=== PATIENT | female | born 2000 | race Two or more races ===

== ENCOUNTER 2025-01-09 11:34 | Outpatient (REF) | payer MEDICAID, SELFPAY ==
[2025-01-09 13:10] LABS: MANUAL DIFF FLAG NO
--- OUTSIDE RECORDS SUMMARY | 2025-01-09 13:14 | XMS_ITS | Encounter Summary ---
Author Organization [email or web address] Address [address] [facility] 7[address] [place] [address] Care Team Providers Care Production Welder Name Role Phone Malena Hare MD Primary Care Provider + Reason for Visit * Reason Comments Med Change Request Encounter Details Date Type Department Care Team ([facility] st Contact Info) Description 01/09/2025 Refill [facility] [address] [place], [place] [phone] Malena Hare MD [address] [place], [place] [phone] Social History Tobacco Use Types Packs/Day Years Used Date Smoking Tobacco: Never Smokeless Tobacco: Never Alcohol Use Standard Drinks/Week Comments Not Currently 0 (1 standard drink = 0.6 oz pur e alcohol) Housing Stability Answer Date Recorded What is your housing situation today? I have [place] 01/09/[address] you li ve. Do you have problems with any of the following? None of the above 01/09/2025 Food Insecurity Answer Date Recorded Within the past 12 months, y ou worried that your food would run out before you got money to buy more: Never True 01/09/2025 Within the past 12 months,th e food you bought just didn't last and you didn't have enough money to get more: Never True 08/2025 Transportation Answer Date Recorded In the past 12 months, has l ack of transportation kept you from medical appts, meetings, work or from getting things needed for daily living? No 01/09/2025 Utilities Answer Date Recorded In the past 12 months, has t he electric, gas, oil or water company threatened to shut off services in your home? No 01/09/2025 Depression Answer Date Recorded Patient Health Questionnaire-2 Score 0 01/09/2025 Internet Access Answer Date Recorded Internet Access Q1 No 01/09/2025 Internet Access Q2 I do not want or need it 12/31 Comments No Sex and Gender Information Value Date Recorded Sex Assigned at Female 08/24/2023 9:31 AM EDT Legal Sex Female 3:48 PM EDT Gender Identity Female 08/24/2023 9:31 AM EDT Sexual Orientation Straight 08/24/2023 9: 31 AM EDT documented as of this encounter Plan of Treatment Upcoming Encounters Date Type Department Care Team (Late st Contact Info) Description 03/31/2025 9:45 AM EDT Office Visit [facility] [address] [place], [place] [phone] Malena Hare MD [address] [place] [phone] documented as of this encounter Visit Diagnoses Not on filedocumented in this encounter Care Teams Production Welder Relationship Specialty Start Date End Date Malena Hare MD [address] [place] [address] [phone] PCP - General Internal Medicine 01/09/25 documented as of this encounter
--- OUTSIDE RECORDS SUMMARY | 2025-01-09 13:14 | XMS_ITS | Clinical Summary ---
Author Organization [facility] Address [address] [place] [address] Care Team Providers Care Optometrist Name Role Phone Unavailable Primary Care Provider Unavailabl e Social History Tobacco Use Types Packs/Day Years Used Date Smoking Tobacco: Never Assessed Comments Unknown Sex and Gender Information Value Date Recorded Sex Assigned at Not on file Legal Sex Female 2:52 AM EST Gender Identity Not on file Sexual Orientation Not on file Plan of Treatment Health Maintenance Due Date Last Done Comments HPV Vaccines (1 - 3-dose series) 2014 DTaP,Tdap,and Td Vaccines (1 - Tdap) 2018 Hepatitis B Vaccines (1 of 3 - 19+ 3-dose series) 2018 Cervical Cancer Screening: P ap Smear 2020 Depression Screening 10/05/2022 HIV Screening 10/05/2022 Hepatitis C Screening 10/05/2022 Social Influencers of Health Screening 10/05/2022 COVID-19 Vaccine ( - 2023-2 5 season) 2024 Influenza Vaccine (#1) 2024 HIB Vaccines Aged Out No longer eligi ble based on patient's age to complete this topic Hepatitis A Vaccines Aged Out No long er eligible based on patient's age to complete this topic IPV Vaccines Aged Out No longer eligi ble based on patient's age to complete this topic MMR Vaccines Aged Out No longer eligi ble based on patient's age to complete this topic Meningococcal ACWY Vaccine Aged Out N o longer eligible based on patient's age to complete this topic Meningococcal B Vacine Aged Out No lo nger eligible based on patient's age to complete this topic Pneumococcal Vaccine: Pediat rics (0 to 5 Years) and At-Risk Patients (6 to 64 Years) Aged Out No longer eligible b ased on patient's age to complete this topic RSV Immunization Patients Un hans 20 months Aged Out No longer eligible b ased on patient's age to complete this topic Varicella Vaccines Aged Out No longer eligible based on patient's age to complete this topic
--- OUTSIDE RECORDS SUMMARY | 2025-01-09 13:14 | XMS_ITS | Encounter Summary ---
Author Organization [employer] Address [address] [facility] 7t [place] [address] Care Team Providers Care Head Rigger Name Role Phone Malena Hare MD Primary Care Provider + Encounter Details Date Type Department Care Team (Latest Contact Info) Description 01/09/2025 Travel Social History Tobacco Use Types Packs/Day Years [...] Description 03/31/2025 9:45 AM EDT Office Visit [facility] [address] [place] [phone] Malena Hare MD [address] [place] [address] documented as of this encounter Visit Diagnoses Not on filedocumented in this encounter Care Teams Head Rigger Relationship Specialty Start Date End Date Malena Hare MD [address] [place] [id number] PCP - General Internal Medicine 01/09/25 documented as of this encounter
--- OUTSIDE RECORDS SUMMARY | 2025-01-09 13:14 | XMS_ITS | Clinical Summary ---
Author Organization [employer] Address [address] [facility] 7t [place] [address] Care Team Providers Care Stitcher Around Name Role Phone Malena Hare MD Primary Care Provider + Allergies No known active allergies Medications multivitamin () 27-0.8 MG tablet Take 1 tablet by mouth Once per day. 30 tablet 01/09/2025 Active valACYclovir (Valtrex) 1 g tablet Take 1 tablet (1,000 mg) by mouth Once per day. 90 tablet 01/09/2025 Active Active Problems Problem Noted Date Diagnosed Date Recurrent oral ulcers 01/09/2025 Class 3 severe obesity due t o excess calories without serious comorbidity with body mass index (BMI) of 40.0 to 44.9 in adult 01/09/2025 Slow transit constipation 01/09/2025 Decreased vision in both eyes 01/09/2025 Encounters Date Type Department Care Team Description 01/09/2025 10:45 AM EDT Office Visit [facility] [address] [place] [phone] Malena Hare MD Recurrent oral ulcers (Primary Dx); Slow transit constipation; Decreased vision in both eyes; Class 3 severe obesity due to excess calories without serious comorbidity with body mass index (BMI) of 40.0 to 44.9 in adult (CMS/HCC); Dietary counseling; Exercise counseling 01/09/2025 Refill [facility] [address] [place] [address] [phone] Malena Hare MD 01/09/2025 Travel 11/28/2024 4:00 PM EST Office Visit [facility] [address] [place] [phone] Name, MD Landry Herpes labialis (Primary Dx) 11/28/2024 Travel 10/25/2024 Telephone [facility] [address] [place] [address] Malena Hare MD New pt appt from Last 3 Months Immunizations Name Administration Dates Next Due Influenza injectable quadrivalent preservative f ree 08/24/2023 Pfizer Covid-19 Vaccine 12+ 08/24/2023 Social History Tobacco Use Types Packs/Day Years Used Date Smoking Tobacco: Never Smokeless Tobacco: Never Tobacco Cessation:Counseling Given: Not Answered Alcohol Use Standard Drinks/Week Comments Not Currently [...] Orientation Straight 08/24/2023 9: 31 AM EDT Last Filed Vital Signs Vital Sign Reading Time Taken Comments Blood Pressure 118/76 01/09/2025 10:35 AM EDT Pulse 88 01/09/2025 10:35 AM EDT Temperature 36.4 ??C (97.6 ??F) 01/09/2025 10:35 AM E DT Respiratory Rate 16 01/09/2025 10:35 AM EDT Oxygen Saturation 98% 11/28/2024 3:58 PM EST Inhaled Oxygen Concentration - - Weight 105 kg (231 lb 4 oz) 01/09/2025 10:35 AM EDT Height 160 cm (5' 3 ) 01/09/2025 10:35 AM EDT Body Mass Index 40.96 01/09/2025 10:35 AM EDT Plan of Treatment Upcoming Encounters Date Type Department Care Team (Late st Contact Info) Description 03/31/2025 9:45 AM EDT Office Visit [facility] [address] [place], [place] [phone] Malena Hare MD [address] [place], [place] [phone] Health Maintenance Due Date Last Done Comments Dental Oral Exam 1999 Dental Prophylaxis 1999 Dental X-Ray: Bitewings 1999 Dental X-Ray: Full Mouth 1999 HIV Screening 1999 Lipid Panel 1999 Alcohol/Substance Use Screening 2011 Family Planning (PISQ) 2014 HPV Vaccines (1 - 3-dose series) 2014 Hepatitis C Screening 2017 DTaP/Tdap/Td Vaccines (1 - Tdap) 2018 Hepatitis B Vaccines (1 of 3 - 19+ 3-dose series) 2018 Pap Smear 2020 COVID-19 Vaccine (2 - 2023-2 5 season) 2024 08/24/2023 Influenza Vaccine (#1) 2024 08/24/2023 Depression Screening 01/09/2026 01/09/2025, 01/09/2025 SDOH Screening 01/09/2026 01/09/2025 Tobacco Screening 01/09/2026 01/09/2025 Zoster Vaccines (1 of 2) 2049 RSV Patients and Patients Aged 60 years or older (1 - 1-dose 75+ series) 2074 HIB Vaccines Aged Out No longer eligi ble based on patient's age to complete this topic Hepatitis A Vaccines Aged Out No long er eligible based on patient's age to complete this topic IPV Vaccines Aged Out No longer eligi ble based on patient's age to complete this topic Meningococcal Vaccine Aged Out No ramírez ronald eligible based on patient's age to complete this topic Pneumococcal Vaccine: Pediatrics (0 to 5 Years) and At-Risk Patients (6 to 49) Years) Aged Out No longer eligible b ased on patient's age to complete this topic RSV under 20 months Aged Out No longe r eligible based on patient's age to complete this topic Rotavirus Vaccines Aged Out No longer eligible based on patient's age to complete this topic Insurance [facility] C3 DENTAL-[facility] MEDICAID STAND ADULT Care Teams Stitcher Around Relationship Specialty Start Date End Date Malena Hare MD [address] [place] [phone] PCP - General Internal Medicine 01/09/25
--- OUTSIDE RECORDS SUMMARY | 2025-01-09 13:14 | XMS_ITS | Encounter Summary ---
Author Organization [employer] Address [address] [facility] 7 [place] [address] Care Team Providers Care Mine Safety Engineer Name Role Phone Malena Hare MD Primary Care Provider + Reason for Referral * Consultation (Routine) - Authorized Specialty Diagnoses / Procedures Referred By Kyara salgado Referred To Contact Optometry Diagnoses Decreased vision in both eyes Malena Hare MD [address] [place] [address] Phone: tel: fax: [facility] [address] [place] [phone] Phone: tel: fax: Referral ID Status Reason Start Date Expiration Date Visits Requested Visits Authorized [id number] Authorized Consult and Treat 01/09/2025 01/09/2026 1 1 Reason for Visit * Reason Comments New patient appointment Encounter Details Date Type Department Care Team (Late st Contact Info) Description 01/09/2025 10:45 AM EDT Office Visit [facility] [address] [place] [phone] Malena Hare MD [address] [place] [address] Recurrent oral ulcers (Primary Dx); Slow transit constipation; Decreased vision in both eyes; Class 3 severe obesity due to excess calories without serious comorbidity with body mass index (BMI) of 40.0 to 44.9 in adult (CMS/HCC); Dietary counseling; Exercise counseling Social History Tobacco Use Types Packs/Day Years [...] AM EDT documented as of this encounter Last Filed Vital Signs Vital Sign Reading Time Taken Comments Blood Pressure 118/76 01/09/2025 10:35 AM EDT Pulse 88 01/09/2025 10:35 AM EDT Temperature 36.4 ??C (97.6 ??F) 01/09/2025 10:35 AM E DT Respiratory Rate 16 01/09/2025 10:35 AM EDT Oxygen Saturation - - Inhaled Oxygen Concentration - - Weight 105 kg (231 lb 4 oz) 01/09/2025 10:35 AM EDT Height 160 cm (5' 3 ) 01/09/2025 10:35 AM EDT Body Mass Index 40.96 01/09/2025 10:35 AM EDT documented in this encounter Plan of Treatment Upcoming Encounters Date Type Department Care Team (Late st Contact Info) Description 03/31/2025 9:45 AM EDT Office Visit [facility] [address] [place] [address] Malena Hare MD [address] [place], [place] [phone] Scheduled Orders Name Type Priority Associated Diagnoses Orde r Schedule CBC auto differential Lab Routine Class 3 severe obesity due to excess calories without serious comorbidity with body mass index (BMI) of 40.0 to 44.9 in adult ([facility]) Expected: 01/09/2025 (Approximate), Expires: 01/09/2026 Comprehensive Metabolic Panel Lab Routine Slow transit constipation Expected: 01/09/2025 (Approximate), Expires: 01/09/2026 Syphilis Screen Lab Routine Recurrent oral ulcers Expected: 01/09/2025 (Approximate), Expires: 01/09/2026 [email or web address] Lab Routine Recurrent oral ulcers Expected: 01/09/2025 (Approximate), Expires: 01/09/2026 TSH with Reflex to Free T4 Lab Routine Class 3 severe obesity due to excess calories without serious comorbidity with body mass index (BMI) of 40.0 to 44.9 in adult ([facility]) Expected: 01/09/2025 (Approximate), Expires: 01/09/2026 Lipid Panel with Reflex to Direct LDL Lab Routine Class 3 severe obesity due to excess calories without serious comorbidity with body mass index (BMI) of 40.0 to 44.9 in adult ([facility]) Expected: 01/09/2025 (Approximate), Expires: 01/09/2026 Herpes Simplex Virus 1 and 2 (IgG), Type-Specific Antibodies Lab Routine Recurrent oral ulcers Expected: 01/09/2025 (Approximate), Expires: 01/09/2026 Herpes Simplex Virus 1 and 2 (IgG), Type-Specific Antibodies Lab Routine Recurrent oral ulcers Expected: 01/09/2025 (Approximate), Expires: 01/09/2026 HIV-1/2 Antigen and Antibodies, Fourth Generation, with Reflexes Lab Routine Recurrent oral ulcers Expected: 01/09/2025 (Approximate), Expires: 01/09/2026 Hepatitis Panel, General Lab Routine Recurrent oral ulcers Expected: 01/09/2025 (Approximate), Expires: 01/09/2026 Scheduled Referrals Name Type Priority Associated Diagnoses Orde r Schedule Referral to Optometry Outpatient Referral Routine Decreased vision in both eyes Expected: 01/09/2025 (Approximate), Expires: 01/09/2026 documented as of this encounter Visit Diagnoses Diagnosis Recurrent oral ulcers- Primary Slow transit constipation Decreased vision in both eyes Moderate or severe vision impairment, both eyes, impairment level not further specified Class 3 severe obesity due to excess calories without serious comorbidity with body mass index (BMI) of 40.0 to 44.9 in adult (CMS/HCC) Dietary counseling Dietary surveillance and counseling Exercise counseling documented in this encounter Care Teams Mine Safety Engineer Relationship Specialty Start Date End Date Malena Hare MD [address] [place] [id number] PCP - General Internal Medicine 01/09/25 documented as of this encounter
[2025-01-09 13:30] LABS: Basophils Percent Auto 0.1 % (0-2); Eosinophils Absolute Auto 0.1 X10*3/uL (0.0-0.4); Eosinophils Percent Auto 1.1 % (0-4); Hematocrit 40.9 % (37.0-47.0); Hemoglobin 13.4 g/dl (12.0-16.0); Imm Gran Abs Auto 0.02 X10*3/uL (0.00-0.03); Imm Gran Pct Auto 0.3 % (0.0-0.4); Lymphocytes Absolute Auto 2.5 X10*3/uL (1.2-4.9); Lymphocytes Percent Auto 32.9 % (20-40); Mean Corpuscular HGB Conc 32.8 g/dl (31.0-35.0); Mean Corpuscular Hemoglobin 28.2 pg (27.0-33.0); Mean Corpuscular Volume 85.9 fL (80.0-98.0); Mean Platelet Volume 9.9 fL (9.4-12.3); Monocytes Absolute Auto 0.4 X10*3/uL (0.1-1.2); Monocytes Percent Auto 5.2 % (2-11); Neutrophils Absolute Auto 4.6 x10*3/uL (2.0-8.3); Neutrophils Percent Auto 60.4 % (45-73); Platelet Count 322 X10*3/uL (160-400); Red Blood Count 4.76 X10*6/uL (4.20-5.50); Red Cell Distribution Width 13.2 % (11.0-16.0); White Blood Count 7.5 X10*3/uL (4.8-10.8)
[2025-01-09 13:54] LABS: Alanine Aminotransferase 70 U/L (0-31); Albumin Level 4.3 g/dL (3.5-5.0); Alkaline Phosphatase 142 U/L (39-117); Anion Gap 10 (12-20); Aspartate Amino Transferase 37 U/L (5-31); Bilirubin Total 0.2 mg/dL (0.0-1.0); Blood Urea Nitrogen 6 mg/dL (9-16); Calcium 9.4 mg/dL (8.4-10.2); Carbon Dioxide 24 mmol/L (22-29); Chloride 109 mmol/L (96-108); Cholesterol 173 mg/dL (<200); Estimated Glomerular Filt Rate > 60; Glucose Random 97 mg/dL (60-115); HDL Cholesterol 40 mg/dL (>40); LDL Cholesterol Calculated 116 mg/dL (<100); Potassium 4.2 mmol/L (3.3-5.1); Sodium 139 mmol/L (135-145); Total Protein 8.1 g/dL (6.5-8.0); Triglycerides 85 mg/dL (<150)
[2025-01-09 14:12] LABS: TSH reflex Free T4 1.28 uIU/mL (0.32-4.0)
[2025-01-09 15:19] LABS: Reflex LDLD? No
[2025-01-10 08:10] LABS: Syphilis Screen Nonreactive (Nonreactive)
[2025-01-10 08:27] LABS: HBc Num1 0.05 S/CO (0.00-0.79); HBsAGNum1 0.23 S/CO (0.00-0.99); HIV AB/AG Nonreactive (Nonreactive); HIV Num 1 0.06 S/CO (0.00-0.99); Hepatitis A Antibody IgM 0.17 Index (0-0.79); Hepatitis B Core Antibody Nonreactive (Nonreactive); Hepatitis B Surface Antigen Negative (Negative); ~Hepatitis A Antibody IgM Nonreactive (Nonreactive); ~Hepatitis B Surface Antibody NONREACTIVE (Nonreactive); ~Hepatitis C Antibody Nonreactive (Nonreactive)
[2025-01-10 20:52] LABS: Herpes Simplex Type 2 IgG <0.90 index
[2025-01-12 14:08] LABS: TS Negative Control Passed; TS Panel A 0; TS Panel B 0; TS Positive Control Passed; TSpotTB Negative (Negative)
== END 2025-01-09 11:35 | disposition home or self-care (01) ==
LOC: HO.HHCL 11:34
PROVIDERS: Visit Provider Internal Medicine
DX: E66.813 Obesity, class 3 (principal); K13.79 Other lesions of oral mucosa; E66.01 Morbid (severe) obesity due to excess calories; Z68.41 Body mass index [BMI] 40.0-44.9, adult; K59.01 Slow transit constipation
CPT/HCPCS: 36415; 80053; 80061; 84443; 85025; 86481; 86695; 86696; 86704; 86706; 86709; 86780; 86803; 87340; 87389

== ENCOUNTER 2025-06-29 15:35 | Outpatient (REF) | payer MEDICAID, SELFPAY ==
--- OUTSIDE RECORDS SUMMARY | 2025-06-29 16:01 | XMS_ITS | Clinical Summary ---
Author Organization [employer] Address [address] [place] [address] Care Team Providers Care Stock Dealer Name Role Phone Malena Hare MD Primary Care Provider + Allergies No known active allergies Medications multivitamin () 27-0.8 MG tablet TAKE 1 TABLET BY MOUTH EVERY DAY 90 tablet 01/10/2025 Active Active Problems Problem Noted Date Diagnosed Date Pure hypercholesterolemia 03/31/2025 Assessment & Plan (03/31/2025 10:13 AM EDT): We discussed re rx options. Recommended moderate amount of exercise and increase consumption of fruit, vegetables, fish and high fiber foods. Should decrease consumption of highly saturated fats or trans fats. Will refer to dietitian and follow-up lipid profile in 8 to 12 months Primary herpes simplex infection of oral region 03/31/2025 Assessment & Plan (03/31/2025 10:13 AM EDT): Resolved with Valtrex daily, she will continue to complete 3 months and stop Reconsult as needed We discussed about contact transmission, avoid mucosal contact with affected areas. Preventative health care 03/31/2025 Assessment & Plan (03/31/2025 10:18 AM EDT): Patient is not interested in contraception at this time, she is not actively seeking but uretheral my getting . She agreed to start vitamins, will minimize prescription medications, advised to avoid drugs or alcohol or any recreational substance Advise regarding increase exercise and healthy diet. We discussed about Td hepatitis and HPV immunization, she does not want to have any immunization and I gave her information about these vaccines, will follow-up at next visit Elevated liver enzymes 03/31/2025 Assessment & Plan (03/31/2025 10:17 AM EDT): Very mild elevation, probably related to fatty liver We discussed about weight reduction, increase exercise and fiber in the diet We advised regarding hepatitis immunization but she does not want to have any immunizations at this time, she will bring immunization record at next visit. 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 Given that patient has associated increased LFTs, I will refer to GI for further follow-up of liver lesions and ?Fatty liver. Recurrent oral ulcers 01/09/2025 Assessment & Plan (01/09/2025 1:59 PM EDT): Most likely HSV, no improvement with 5 day Valtrex treatment. Will start suppressive therapy 1 gr daily X 2-3 months. I will FU with her next month. Class 3 severe obesity due t o excess calories without serious comorbidity with body mass index (BMI) of 40.0 to 44.9 in adult 01/09/2025 Assessment & Plan (03/31/2025 10:14 AM EDT): Discussed re weight reduction options including exercise, life style modifications, diet. Recommended to decrease soda and sugary beverage consumption, increase protein intake with meals (at least 1 portion of protein with each meal) to assist with satiety, increase dietary fiber Recommended at least 150 min/week of moderate intensity exercise. Refer to dietitian, follow-up with me in 3 to 4 months and may prescribe medications if needed, she agreed with the POC. Assessment & Plan (01/09/2025 2:02 PM EDT): Order labs. Discussed re weight reduction options including exercise, life style modifications, diet. Recommended to decrease soda and sugary beverage consumption, increase protein intake with meals (at least 1 portion of protein with each meal) to assist with satiety, increase dietary fiber Recommended at least 150 min/week of moderate intensity exercise. Slow transit constipation 01/09/2025 Assessment & Plan (01/09/2025 2:00 PM EDT): Increased water and fiber intake. Order labs and FU next appointment. Decreased vision in both eyes 01/09/2025 Assessment & Plan (01/09/2025 2:01 PM EDT): Refer to Eye Clinic. Encounters Date Type Department Care Team Description 06/29/2025 Telephone [facility] MEDICINE [address] [place] [address] Malena Hare MD Lab Orders 06/23/2025 Telephone [facility] OPTOMETRY [address] [place] [address] Suly Aguilar, OD 06/07/2025 Telephone [facility] MEDICINE [address] [place] [address] Malena Hare MD Appointment Confirmation 05/12/2025 2:00 PM EDT Nutrition [facility] DIABETES/NUTRITION [address] [place] [address] Pure hypercholesterolemia; Class 3 severe obesity due to excess calories without serious comorbidity with body mass index (BMI) of 40.0 to 44.9 in adult 05/12/2025 Travel 04/10/2025 Telephone [facility] MEDICINE [address] [place] [address] Malena Hare MD Referral 03/31/2025 9:45 AM EDT Office Visit [facility] [address] [place] [phone] Malena Hare MD Pure hypercholesterolemia (Primary Dx); Primary herpes simplex infection of oral region; Liver lesion; Elevated liver enzymes; Class 3 severe obesity due to excess calories without serious comorbidity with body mass index (BMI) of 40.0 to 44.9 in adult; Preventative health care 03/31/2025 Travel 03/30/2025 Telephone [facility] MEDICINE [address] [place] [address] Malena Hare MD Chart Prep from Last 3 Months Immunizations Immunization Administration Dates Next Due Influenza injectable quadrivalent preservative f ree 08/24/2023 Pfizer Covid-19 Vaccine 12+ 08/24/2023 Social History Tobacco Use Types Packs/Day Years Used Date Smoking Tobacco: Never Smokeless Tobacco: Never Tobacco Cessation:Counseling Given: Not Answered Alcohol Use Standard Drinks/Week Comments Not Currently 0 (1 standard drink = 0.6 oz pur e alcohol) Alcohol Answer Date Recorded How often do you have a drink containing alcohol ? 0 03/31/2025 How many drinks containing a lcohol do you have on a typical day when you are drinking? 0 03/31/2025 How often do you have six or more drinks on one occasion? 0 03/31/2025 Housing Stability Answer Date Recorded What is [...] want or need it 12/31 Comments No Intention Date Recorded Wants to become (finding) 03/31 Sex and Gender Information Value Date Recorded Sex Assigned at Female 08/24/2023 9:31 AM EDT Legal Sex Female 3:48 PM EDT Gender Identity Female 08/24/2023 9:31 AM EDT Sexual Orientation Straight 08/24/2023 9: 31 AM EDT Last Filed Vital Signs Vital Sign Reading Time Taken Comments Blood Pressure 116/72 03/31/2025 9:44 AM EDT Pulse 60 03/31/2025 9:44 AM EDT Temperature 36.6 C (97.8 F) 03/31/2025 9:44 AM EDT Respiratory Rate 12 03/31/2025 9:44 AM EDT Oxygen Saturation 98% 11/28/2024 3:58 PM EST Inhaled Oxygen Concentration - - Weight 105 kg (232 lb 6.4 oz) 05/12/2025 4:29 PM EDT Height 160 cm (5' 3 ) 05/12/2025 4:29 PM EDT Body Mass Index 41.17 05/12/2025 4:29 PM EDT Plan of Treatment Health Maintenance Due Date Last Done Comments Dental Oral Exam 1999 Dental Prophylaxis 1999 Dental X-Ray: Bitewings 1999 Dental X-Ray: Full Mouth 1999 Disability Screening 1999 HPV Vaccines (1 - 3-dose series) 2014 DTaP/Tdap/Td Vaccines (1 - Tdap) 2018 Hepatitis A Vaccines (1 of 2 - Risk 2-dose series) 2018 Hepatitis B Vaccines (1 of 3 - 19+ 3-dose series) 2018 Pap Smear 2020 COVID-19 Vaccine (2 - 2023-2 5 season) 2024 08/24/2023 Influenza Vaccine (#1) 2025 08/24/2023 Depression Screening 01/09/2026 01/09/2025, 01/09/2025 SDOH Screening 01/09/2026 01/09/2025 Alcohol/Substance Use Screening 03/31/2026 03/31/2025 Family Planning (PISQ) 03/31/2026 03/31/2025 Tobacco Screening 03/31/2026 03/31/2025 Lipid Panel 01/09/2030 01/09/2025 Zoster Vaccines (1 of 2) 2049 RSV Patients and Patients Aged 60 years or older (1 - 1-dose 75+ series) 2074 HIV Screening Completed 01/09/2025 Hepatitis C Screening Completed 01/09/2025 HIB Vaccines Aged Out No longer eligi ble based on patient's age to complete this topic IPV Vaccines Aged Out No longer eligi ble based on patient's age to complete this topic Meningococcal B Vaccine Aged Out No l onger eligible based on patient's age to complete this topic Meningococcal Vaccine Aged Out No ramírez ronald eligible based on patient's age to complete this topic Pneumococcal Vaccine: Pediatrics (0 to 5 Years) and At-Risk Patients (6 to 49) Years Aged Out No longer eligible b ased on patient's age to complete this topic RSV under 20 months Aged Out No longe r eligible based on patient's age to complete this topic Rotavirus Vaccines Aged Out No longer eligible based on patient's age to complete this topic Procedures Procedure Name Priority Date/Time Associated Diagnosis Comments HEPATITIS PANEL, GENERAL Routine 01/09/2025 11:38 AM EDT Recurrent oral ulcers HIV 1/2 ANTIGEN/ANTIBODY, FOURTH GENERATION W/RFL Routine 01/09/2025 11:38 AM EDT Recurrent oral ulcers LIPID PANEL WITH REFLEX TO DIRECT LDL Routine 01/09/2025 11:38 AM EDT Class 3 severe obesity due to excess calories without serious comorbidity with body mass index (BMI) of 40.0 to 44.9 in adult (CMS/[facility]) from Last 3 Months or Most Recently Relevant to Health Maintenance Results * (ABNORMAL) Lipid Panel with Reflex to Direct LDL (01/09/2025 11:38 AM EDT) Triglycerides 85 <150 mg/dL [facility] Comment:Desirable Triglyceri de: less than 150 mg/dLBorderline High Triglyceride 150-199 mg/dLHigh Triglyceride: 200-499 mg/dLVery High Triglyceride: greater than or equal to 5OO mg/dL Cholesterol 173 <200 mg/dL [facility] Comment:Desirable Cholestero l: less than 200 mg/dLBorderline High Cholesterol: 200-239 mg/dLHigh Cholesterol: greater than 239 mg/dL LDL Cholesterol Calculated 116(H) <100 mg/dL [facility] Comment:Desirable LDL: less than 100 mg/dLNear Optimal/Above Optimal LDL: 110- 129 mg/dLBorderline High LDL: 130-159 mg/dLHigh LDL: 160-189 mg/dLVery High LDL: greater than or equal to 190 mg/dL HDL Cholesterol 40(L) >40 mg/dL [facility] Comment:Desirable HDL: great er than 40 mg/dL Note: This HDL assay may give artificially low results in patients with liver disease. Blood 01/09/2025 11:3 8 AM EDT 01/09/2025 1:05 PM EDT us Malena Hare MD LAB BLOOD ORDERABLES Fin al Result [facility] [address] [place] [phone] * Hepatitis Panel, General (01/09/2025 11:38 AM EDT) Hepatitis A IgM Nonreactive Nonreactive [facility] Comment:IgM antibodies to ALLISON V not detected; does not exclude earlyacute or recovered HAV infection. ~Hepatitis B Surface Antibody NONREACTIVE Nonreactive [facility] Comment:Nonreactive: < 8.00 mIU/mL Hepatitis B Core Antibody Nonreactive Nonreactive [facility] Hepatitis C Antibody Nonreactive Nonreactive [facility] Comment:Antibodies to HCV no t detected; does not exclude early acuteHCV infection. Hepatitis B Surface Ag Negative Negative [facility] Blood 01/09/2025 11:3 8 AM EDT 01/09/2025 1:05 PM EDT us Malena Hare MD LAB BLOOD ORDERABLES Fin al Result [facility] [address] [place] [phone] * HIV-1/2 Antigen and Antibodies, Fourth Generation, with Reflexes (01/09/2025 11:38 AM EDT) HIV AB/AG Nonreactive Nonreactive [facility] Comment:HIV-1 p24 Ag and/or HIV-1/HIV-2 Ab not detected.A test result that is nonreactive does not exclude thepossibility of exposure to or infection with HIV-1 and/orHIV-2. Nonreactive results in this assay for individualswith prior exposure to HIV-1 and/or HIV-2 may be due toantigen and antibody levels that are below the limit ofdetection of this assay.The [employer] HIV Ag/Ab Combo assay result andsupplemental assay results should be interpreted inconjunction with the patient's clinical presentation,history and other laboratory results. If the results areinconsistent with clinical evidence, additional testing issuggested to confirm the result. Blood Venous blood specimen / Unknown 01/09/2025 11:38 AM EDT 01/09/2025 1:05 PM EDT Malena Hare MD LAB BLOOD ORDERABLES Fin al Result [facility] [address] [place] [phone] from Last 3 Months or Most Recently Relevant to Health Maintenance Insurance [facility] C3 DENTAL-[facility] MEDICAID STAND ADULT Care Teams Stock Dealer Relationship Specialty Start Date End Date Malena Hare MD [address] [place] [phone] PCP - General Internal Medicine 01/09/25
--- OUTSIDE RECORDS SUMMARY | 2025-06-29 16:01 | XMS_ITS | Encounter Summary ---
Author Organization [employer] Address [address] [place] [address] Care Team Providers Care Geospatial Intelligence Analyst Name Role Phone Malena Hare MD Primary Care Provider + Reason for Visit * Reason Onset Date Comments Lab Orders 06/29/2025 Encounter Details Date Type Department Care Team ([facility] st Contact Info) Description 06/29/2025 Telephone [facility] MEDICINE [address] [place], [place] [phone] Malena Hare MD [address] [place] [address] Lab Orders Social History Tobacco Use Types Packs/Day Years [...] AM EDT documented as of this encounter Miscellaneous Notes * Telephone Encounter - Nan Chacon RN - 06/29/2025 1:59 PM EDT TC returned to pt. Reports LMP 05/21/25. 2 + urine HCGs today. Not established with OBGYN office andwould accept referral to [facility] for care if bloodwork is +. Order placed, pt. Is coming today. Pt. Denies any vaginal bleeding, spotting or severe cramping. Will contact pt. With results, and request referral and refill vitamin if + * Telephone Encounter - Anika Irene - 06/29/2025 12:41 PM EDT Tc from pt requesting a lab order for a test by blood. Pt states she took an at home testcame back positive and wants a second answer Contact pt at [phone] documented in this encounter Plan of Treatment Scheduled Orders Name Type Priority Associated Diagnoses Orde r Schedule hCG, Total, Quantitative Lab Routine Positive test Expected: 06/29/2025 (Approximate), Expires: 06/29/2026 documented as of this encounter Visit Diagnoses Diagnosis Positive test examination or test, positive result documented in this encounter Care Teams Geospatial Intelligence Analyst Relationship Specialty Start Date End Date Malena Hare MD [address] [place] [phone] PCP - General Internal Medicine 01/09/25 documented as of this encounter
--- OUTSIDE RECORDS SUMMARY | 2025-06-29 16:01 | XMS_ITS | Clinical Summary ---
Author Organization [facility] Address [address] [place] [address] Care Team Providers Care Brush Hand Name Role Phone Unavailable Primary Care Provider [...] Cervical Cancer Screening: P ap Smear 2020 HIV Screening 10/05/2022 Hepatitis C Screening 10/05/2022 Social Influencers of Health Screening 10/05/2022 COVID-19 Vaccine (1 - 2023-2 5 season) 2024 Depression Screening 11/02/2024 Influenza Vaccine (#1) 2025 HIB Vaccines Aged Out No longer eligi [...] 5 Years) and At-Risk Patients (6 to 49 Years) Aged Out No longer eligible b ased on patient's age to complete this topic RSV Immunization Patients Un ahns 20 months Aged Out No longer eligible b ased on patient's age to complete this topic Varicella Vaccines Aged Out No longer eligible based on patient's age to complete this topic
== END 2025-06-29 15:36 | disposition home or self-care (01) ==
LOC: HO.HHCL 15:35
PROVIDERS: PCP Internal Medicine; Visit Provider Internal Medicine
DX: Z32.01 Encounter for pregnancy test, result positive (principal)
CPT/HCPCS: 36415; 84702; 86695; 86696